=== PATIENT | female | born 1970 | race American Indian/Alaskan Native ===

== ENCOUNTER 2020-01-11 05:52 | Observation (INO) | payer BC ==
[2020-01-10 09:01] LABS: Basophils % (Auto) 0.5 % (0.0-1.8); Eosinophils % (Auto) 0.6 % (0.0-4.3); Hematocrit 35.3 % (30.3-42.9); Lymphocytes # (Auto) 1.5 K/mm3 (1.2-5.4); Lymphocytes % (Auto) 28.6 % (13.4-35.0); Mean Corpuscular HGB Conc 34 % (30-34); Mean Corpuscular Volume 83 fl (79-97); Monocytes # (Auto) 0.4 K/mm3 (0.0-0.8); Monocytes % (Auto) 7.8 % (0.0-7.3); Platelet Count 278 K/mm3 (140-440); Red Blood Count 4.25 M/mm3 (3.65-5.03)
--- NOTE | 2020-01-10 09:29 | Anesthesia Consultation ---
Anesthesia Consult and Med Hx Date of service: 01/11/20 - Airway Anesthetic Teeth Evaluation: Good ROM Head & Neck: Adequate Mental/Hyoid Distance: Adequate Mallampati Class: Class II Intubation Access Assessment: Probably Good - Pulmonary Exam CTA: Yes - Cardiac Exam Cardiac Exam: RRR - Pre-Operative Health Status ASA Pre-Surgery Classification: ASA2 Proposed Anesthetic Plan: General Nerve Block: TAP - Pulmonary Hx Smoking: No Hx Respiratory Symptoms: No Hx Sleep Apnea: No - Cardiovascular System Hx Hypertension: Yes Hx Heart Attack/AMI: No Hx Percutaneous Transluminal Coronary Angioplasty (PTCA): No Hx Cardia Arrhythmia: No - Central Nervous System CVA: No - Gastrointestinal Hx Gastroesophageal Reflux Disease: No - Endocrine Hx Renal Disease: No Hx Liver Disease: No Hx Insulin Dependent Diabetes: No Hx Non-Insulin Dependent Diabetes: No Hx Thyroid Disease: No - Hematic Hx Anemia: Yes (no hx blood transfusion) - Other Systems Hx Obesity: No - Additional Comments Anesthesia Medical History Comments: No hx anesthetic complications.
--- NOTE | 2020-01-10 17:53 | History and Physical Report ---
History of Present Illness Date of examination: 01/06/20 Chief complaint: Uterine fibroids and menorrhagia unresponsive to medical therapy. She now desires definitive surgical therapy in the form of hysterectomy with ovarian conservation. History of present illness: Past History : 1 Term Births: 1 Living Children: 1 Para: 1 # 1 Delivery type: Comments: cerclage [employer]IO [employer]CH History Operations: CARDIO TECH Surgery cerclage Repair of umbilicus hernia(2013) mesh Abnormal PAP: negative Uterine Anomaly: positive fibroids Infection History HIV Risk Eval: no Hx of STD: None Active Medications (reviewed today): MIRENA (52 MG) 20 MCG/24HR INTRAUTERINE INTRAUTERINE DEVICE (LEVONORGESTREL) insert with next NORVASC TABLET (AMLODIPINE BESYLATE TABS) Current Allergies (reviewed today): No known allergies Past Medical History: Reviewed history from 06/05/2011 and no changes required: Hypertension Family History Summary: Reviewed history Last on 11/26/2019 and no changes required:01/10/2020 Other Family Member - Has No Family History of Spontaneous DVT-PE - Entered On: 04/09/2019 Mother - Has Family History Breast Cancer - dx'd 1999, alive - Entered On: 04/09/2019 Other Family Member - Has No Family History of Uterine Cancer - Entered On: 09/13/2015 Other Family Member - Has No Family History of Small Bowel Cancer - Entered On: 09/13/2015 Other Family Member - Has No Family History of Stomach Cancer - Entered On: 09/13/2015 Other Family Member - Has No Family History of Pancreatic Cancer - Entered On: 09/13/2015 Other Family Member - Has No Family History of Ovarvian Cancer - Entered On: 09/13/2015 Other Family Member - Has No Family History of Kidney/Urinary Tract Cancer - Entered On: 09/13/2015 Other Family Member - Has No Family History of DVT/PE on OCP - Entered On: 09/13/2015 Other Family Member - Has No Family History of Colon Cancer - Entered On: 09/13/2015 Other Family Member - Has No Family History of Brain Cancer - Entered On: 09/13/2015 Other Family Member - Has No Family History of Biliary Tract Cancer - Entered On: 09/13/2015 Father - Has Family History of Prostate Cancer - Entered On: 09/13/2015 General Comments - FH: Family History Breast Cancer mother Menopause No Family History of Colon Cancer No Family History of Ovarvian Cancer No Family History of DVT/PE on OCP Social History: Reviewed history from 11/08/2016 and no changes required: Patient is Smoking History: Patient has never smoked. Risk Factors: Smoked Tobacco Use: Never smoker Smokeless Tobacco Use: Never HIV high-risk behavior: no Alcohol use: no Exercise: yes Seatbelt use: 100 % PAP Smear History: Date of Last PAP Smear: 04/09/2019 Previous Tobacco Use: Signed On - 11/26/2019 Smoked Tobacco Use: Never smoker Smokeless Tobacco Use: Never Drug use: no HIV high-risk behavior: no Previous Alcohol Use: Signed On - 11/26/2019 Alcohol use: no Exercise: yes Times per week: 3 Type of Exercise: gym Seatbelt use: 100 % Mammogram History: Date of Last Mammogram: 02/26/2019 PAP Smear History: Date of Last PAP Smear: 04/09/2019 Physical Exam Appearance: well developed, well nourished, no acute distress Other Exams Lungs: no rales, rhonchi, or wheezes Heart: S1, S2, no murmur, rub, or gallop Genitourinary Exam Uterus: see previous exam, deferred to EUA Impression & Recommendations: Problem # 1: Excessive and frequent menstruation with regular cycle (ICD-626.2) (RAK70-Z08.0) Diagnosis explained to patient . Discussed with patient various medical, surgical and radiological therapies common for treatment including, but not limited to, myomectomy, hysterectomy and uterine artery embolization. Discussed risks and benefits of laparotomy, laparoscopy, vaginal and robotic assisted approaches for hysterectomies. Patient desires definitive treatment in the form of robot assisted laparoscopic total hysterectomy. The risks and alternatives for this surgery were reviewed with the patient. She was informed of the risks of the surgery including, but not limited to, pain, infection, bleeding possibly heavy enough to require a blood transfusion with associated risks of infections (hepatitis and HIV) and transfusion reactions, possible damage to bowel, bladder or ureter(s). Patient understands that this surgery with make her sterile. Indications to abort a robotic/laparoscopic procedure and perform an open procedure were explained. She desires ovarian conservation. She was informed she may require surgery later to have her ovaries removed for a benign or malignant condition. Patient understands if her ovaries are removed she will become menopausal. Patient advised the small risks of spreading of malignancy if morcellation is required during the surgery patient understands and approves performing if necessary. Questions answered. Consent reviewed and signed The patient was instructed/informed the following: The normal length of hospital stay for this procedure. Nothing to eat or drink after midnight the evening prior to surgery. Clear liquids the day before surgery. Pre-op instruction sheets given. Wound care instructions given. Problem # 2: Leiomyoma, uterus, submucosal (ICD-218.0) ([id number]) Medications and Allergies Allergies Allergy/AdvReac Type Severity Reaction Status Date / Time rafat flavor Allergy Mild Rash on Verified 01/06/20 17:05 Lips Home Medications Medication Instructions Recorded Confirmed Last Taken Type Multivitamin [Multi Vitamin Daily] 1 tab PO DAILY 12/14/13 01/06/20 12/16/13 06:30 History amLODIPine 10 mg PO DAILY 12/14/13 01/06/20 12/17/13 06:15 History Active Meds: Active Medications Amlodipine Besylate (Amlodipine) 10 mg PO DAILY JOSE Celecoxib (Celebrex) 200 mg PO PREOP NR Stop: 01/11/20 23:59 Fentanyl (Sublimaze) 100 mcg IV ONCE PRN PRN Reason: sedation for nerve block Stop: 01/11/20 23:59 Gabapentin (Gabapentin) 600 mg PO PREOP NR Stop: 01/11/20 23:59 Lactated Ringer's (Lactated Ringers) 1,000 mls @ 100 mls/hr IV DIRECT JOSE Stop: 01/11/20 23:59 Cefazolin Sodium (Ancef/Sterile Water 2 Gm/20 Ml) 2 gm in 20 mls @ 80 mls/hr IV PREOP NR; Protocol Magnesium Oxide (Mag-Ox) 400 mg PO PREOP JOSE Stop: 01/11/20 23:59 Midazolam HCl (Versed) 2 mg IV PREOP NR Stop: 01/11/20 23:59 Exam Vital Signs Temp Pulse Resp BP Pulse Ox 98.8 F 86 20 145/86 100 01/10/20 08:45 01/10/20 08:45 01/10/20 08:45 01/10/20 08:45 01/10/20 08:45 Results - Labs 01/10/20 08:50 Abnormal lab results 01/10/20 Range/Units 08:50 Howell % (Auto) 7.8 H (0.0-7.3) % Assessment and Plan - Patient Problems (1) Menorrhagia Status: Acute (2) Fibroid Status: Acute (3) Hypertension Status: Chronic Qualifiers: Hypertension type: essential hypertension Qualified Code(s): I10 - Essential (primary) hypertension
[2020-01-11] MEDS ORDERED: LACTATED RINGERS 1,000 ML IV SCH ×2 (06:00→12:55)
[2020-01-11] MEDS ORDERED: CELECOXIB 200 MG CAP PO NR (06:00)
[2020-01-11] MEDS ORDERED: GABAPENTIN 300 MG CAP PO NR (06:00)
[2020-01-11] MEDS ORDERED: ceFAZolin/Water 2 GM/20 ML 2 GM/20 ML SYRINGE IV NR (06:00)
[2020-01-11] MEDS ORDERED: MIDAZOLAM 2 MG/2 ML INJ IV NR (06:00)
[2020-01-11] MEDS ORDERED: MAGNESIUM OXIDE 400 MG TAB PO SCH (06:00)
[2020-01-11] MEDS ORDERED: fentaNYL 100 MCG/2 ML INJ IV PRN (06:00)
[2020-01-11] MEDS ORDERED: dexAMETHasone 4 MG/ML VIAL ONE (07:16)
[2020-01-11] MEDS ORDERED: BUPIVACAINE-EPINEPHRINE/PF 0.25%-1:200,000 (30 ML) VIAL INFILTRATI ONE (07:17)
[2020-01-11] MEDS ORDERED: NEOMY 40 MG/POLYMYXIN B 200,000 UNITS/ML (GU) AMPULE IR ONE ×2 (07:23→09:45)
[2020-01-11] MEDS ORDERED: CALCIUM CHLORIDE 1,000 MG/10 ML SYRINGE IV ONE ×2 (07:23→09:44)
[2020-01-11] MEDS ORDERED: THROMBIN (RECOMBINANT) 5,000 UNIT VIAL TP ONE ×2 (07:24→09:45)
[2020-01-11] MEDS ORDERED: HYDROmorphone 1 MG/1 ML INJ IV PRN (07:31)
--- NOTE | 2020-01-11 07:31 | Anesthesia Day of Surgery ---
Anesthesia Day of Surgery - Day of Surgery Patient Examined: Yes Patient H&P Reviewed: Yes Patient is NPO: Yes
[2020-01-11] MEDS ORDERED: propofoL 200 MG/20 ML VIAL IV ONE (07:33)
[2020-01-11] MEDS ORDERED: ONDANSETRON 4 MG/2 ML INJ ONE (07:33)
[2020-01-11] MEDS ORDERED: dexAMETHasone 20 MG/5 ML VIAL ONE (07:33)
[2020-01-11] MEDS ORDERED: LIDOCAINE MPF (2%) 20 MG/1 ML VIAL 5 ML ONE (07:33)
[2020-01-11] MEDS ORDERED: ROCURONIUM 50 MG/5 ML INJ IV ONE ×2 (07:33→10:34)
[2020-01-11] MEDS ORDERED: SODIUM CHLORIDE 0.9% 100 ML ONE (09:09)
[2020-01-11] MEDS ORDERED: VASOPRESSIN 20 UNIT/1 ML INJ ONE (09:10)
[2020-01-11] MEDS ORDERED: CITRIC ACID-SOD CITRATE 500 ML IV ONE (09:19)
[2020-01-11] MEDS ORDERED: CITRIC ACID-SOD CITRATE SOLN 500 ML IV SOLN IV ONE (09:44)
[2020-01-11] MEDS ORDERED: SODIUM CHLORIDE 0.9% IRRIG SOLN 2000 ML IR ONE (09:46)
[2020-01-11] MEDS ORDERED: VASOPRESSIN 20 UNIT/1 ML INJ IM ONE (09:46)
[2020-01-11] MEDS ORDERED: SODIUM CHLORIDE 0.9% 100 ML IVPB IV ONE (09:46)
[2020-01-11] MEDS ORDERED: amLODIPine 10 MG TAB PO SCH (10:00)
[2020-01-11] MEDS ORDERED: GLYCOPYRROLATE 0.4 MG/2 ML INJ ONE (11:27)
[2020-01-11] MEDS ORDERED: NEOSTIGMINE 10MG/10 ML INJ MDV ONE (11:27)
[2020-01-11] MEDS ORDERED: PHENYLEPHRINE/NS 1,000 MCG/10 ML SYRINGE (OR USE) IV ONE ×5 (11:31)
--- NOTE | 2020-01-11 12:13 | Post Operative Note ---
Pre-op diagnosis: Menorrhagia, fibroids Post-op diagnosis: same (SULEMA) Findings: 18weeks size uterus, pelvic/abdominal adhesions, grossly tubes and ovaries Procedure: RALTH, (B) salpingectomy, SULEMA Anesthesia: DONNAA Surgeon: ODESSA PIZANO Estimated blood loss: other (350mL; given 125mL ce;;saved RBC's) Pathology: list (uterus, tubes, (B) fallopian tubes) Specimen disposition: to lab Condition: stable Disposition: PACU
--- NOTE | 2020-01-11 12:23 | Operative Report ---
Operative Report Operative Report: Date: 01/11/2020 Preoperative diagnosis: 1. Menorrhagia 2. Uterine fibroid 3. Body mass index of 24 kg/m 4. Hypertension Postoperative diagnosis: 1. Menorrhagia 2. Uterine fibroid 3. Body mass index of 24 kg/m 4. Hypertension 5. Abdominal pelvic adhesions Procedure: 1. Robotic-assisted laparoscopic total hysterectomy with bilateral salpingectomy 2. Lysis of adhesion Surgeon: Jacquie Dunn MD Quality Rep: Jayden Lancaster Anesthesiologist: Dr. Katia Beyer Anesthesia: General endotracheal anesthesia EBL: Approximately 350 mL Findings: EUA: Uterus palpated to approximately 18 weeks. Uterus was sounded to 13 cm. Grossly normal tubes and ovaries. Approximately 9 cm posterior fundal fibroid. Omental adhesions to the anterior abdominal wall mesh. No bowel involvement noted. Patient received 125 mL's of Cell Saved packed red blood cells. Procedure: Patient was taken to the OR and placed in the supine position. General anesthesia was induced and an oral gastric tube was placed. Her neck and head were placed on foam support. Foam eye protection with goggles were secured in place. Then foam face protection was placed and secured. Foam shoulder pads were then positioned on her shoulders for Trendelenburg positioning. She was then placed in dorsolithotomy position. Exam under anesthesia as above. The abdomen and vagina were then prepped and draped in the usual sterile fashion. Timeout was performed. A Osorio catheter was inserted into the bladder with drainage of clear yellow urine. The operative speculum was introduced into the vagina and the anterior lip of the cervix was grasped with single-toothed tenaculum. The uterus was sounded to 13 cm. The cervix was progressively dilated to allow the [] V care uterine manipulator. The bulb of the manipulator was inflated and the speculum and tenaculum were removed. The cup of the manipulator was placed around the cervix and the blue occluder of the manipulator was properly positioned in the vagina and secured. A laparotomy sponge that was saturated with a solution of polymyxin and saline was placed in the vagina to ensure pneumoperitoneum. Sterile gloves were placed and attention was turned to the abdomen. A 10 mm midline vertical supraumbilical incision was made approximately 10 cm superior to the elevated fundus of the uterus. A 10-12 mm trocar with the laparoscope and camera attached was introduced through this incision under direct visualization. The abdomen was insufflated. No obvious bowel, bladder, ureteral, or major vascular injury was noted. The patient was then placed in steep Trendelenburg position and the following trochars were placed under direct visualization: 8 mm robotic trochars were placed through incisions made in the bilateral midclavicular lower abdominal region approximately 10 cm lateral to the midline incision, and a 5 mm trocar was placed through an incision made in the right lower lateral pelvis. The 10 mm laparoscope was then replaced by a 5 mm laparoscope that was placed through the 5 millimeter lateral trocar. Once the trochars were in the appropriate positions, using the laparoscopic EndoShears and 30 W of energy the adhesions were released from the anterior abdominal wall mesh. No obvious bowel injury was noted. The released omentum was hemostatic. The 12 mm trocar was then removed and the Oli Jeffries fascial closure device was placed through the incision and a 0 Vicryl was placed through the fascia. Once the suture was secured the 12 mm trocar was reintroduced. The da Yun robot system was engaged. The EndoShears and bipolar device was placed through the 8 mm trochars and positioned then attention was turned to the console. At this point decision was made to proceed with myomectomy to improve visualization of the operative field. Using 60 mL of Pitressin (20 units in 100 mL's of normal saline), the fundal posterior fibroid was infused with Pitressin and an incision was made using the robotic EndoShears and a myomectomy was performed. Then using the V-Loc 180 the fibroid was secured to the anterior abdominal wall to ensure there was a lost during the rest of the procedure. The uterus was elevated and bilateral salpingectomy was performed. Each tube was removed through the 5 mm trocar and sent to pathology in separate containers. Then the utero-ovarian ligaments were clamped. cauterized and incised bilaterally using 30 W of energy. Then the round ligaments were clamped, cauterized and incised bilaterally. The anterior leaf of the broad ligament was elevated and with careful blunt and sharp dissection the bladder flap was created and dissected away from the lower uterine segment and cervix. The posterior leaf of the broad ligament was dissected away from the uterine vessels. The cup of the uterine manipulator was palpated both anteriorly and posteriorly. The bladder was further dissected away from the lower uterine segment. The uterine vessels were then clamped and cauterized bilaterally. Blanching of the uterus was then noted. Attention was again turned to the anterior lower uterine segment and the bladder was confirmed to be away from the operative field. Then attention was turned again to the posterior where the cup of the manipulator was palpated and a colpotomy was performed down to the cup. The incision was extended in the lateral position to the uterine vessels that were again clamped and cauterized and incised. Continuing along the cup of the manipulator in a circumferential manner the colpotomy was completed. The uterus,cervix and fibroid were then removed through the vaginal incision. The pelvis was irrigated with warm normal saline. A moist laparotomy sponge was placed in the vagina to maintain pneumoperitoneum. The vagina cuff was reapproximated using V LOC 180 suture. Then a J stitch was performed to secure the suture. Again the pelvis was copiously irrigated with polymixin in warm normal saline. The laparotomy sponge was removed from the vagina. No obvious evidence of bowel, bladder, ureteral, or major vascular injury was noted. Once hemostasis was noted, platelet rich plasma was applied to the operative field to ensure hemostasis. Platelet poor plasma was applied to decrease formation of adhesions. Then the instruments were removed, the robot was disengaged. The 12 mm trocar was removed and the fascia was ligated with the 0 Vicryl suture that was placed at the beginning of the procedure. An additional stitch of 0 Vicryl was placed through a noted defect in the fascia at the midline incision. The patient was taken out of Trendelenburg position, the abdomen was desufflated, the remaining trochars were removed. Incisions were reapproximated using 4-0 Monocryl in a subcuticular manner. Surgiseal was placed over the other incisions. The vagina was then inspected, the cuff was palpated to be intact and no bleeding was noted and clear yellow urine was draining into the Osorio bag from the bladder at the end of the procedure. Counts were correct 3. Patient was taken to recovery room in stable condition.
[2020-01-11] MEDS ORDERED: MORPHINE 2 MG/1 ML INJ IV PRN (12:55)
[2020-01-11] MEDS ORDERED: MORPHINE 4 MG/1 ML INJ IV PRN (12:55)
[2020-01-11] MEDS ORDERED: METOCLOPRAMIDE 10 MG/2 ML INJ IV PRN (12:55)
[2020-01-11] MEDS ORDERED: ONDANSETRON 4 MG ODT TAB PO PRN (12:55)
[2020-01-11] MEDS ORDERED: NALOXONE 0.4 MG/1 ML INJ IV PRN (12:55)
[2020-01-11] MEDS ORDERED: ONDANSETRON 4 MG/2 ML INJ IV PRN (12:55)
[2020-01-11] MEDS ORDERED: HYDROcodone/ACETAMINOPHEN 5-325 MG TAB PO PRN (12:55)
--- NOTE | 2020-01-11 14:10 | Post Anesthesia Evaluation ---
- Post Anesthesia Evaluation Patient Participated: Yes Airway Patent: Yes Stable Respiratory Function: Yes Nausea/Vomiting: No Temp > 96.8F: Yes Pain Manageable: Yes Adequeate Hydration: Yes Anesthesia Complications: No
[2020-01-11] MEDS: ACETAMINOPHEN 325 MG TAB PO SCH ×2 (14:55→21:50)
[2020-01-11] MEDS: ceFAZolin/NS 1 GM/50 ML 1 GM/50 ML BAG IV SCH ×2 (14:55→21:51)
[2020-01-11] MEDS: KETOROLAC 30 MG/1 ML INJ IV SCH ×2 (17:28→22:49)
--- NOTE | 2020-01-11 19:35 | Progress Note ---
Assessment and Plan - Patient Problems (1) History of robot-assisted laparoscopic hysterectomy Current Visit: Yes Status: Acute Plan to address problem: Operative findings and procedures explained to her and her , plan of care discussed. Questions encouraged and answered. Continue post hysterectomy pathway. She voiced understanding and agrees with plan of care (2) Menorrhagia Current Visit: No Status: Resolved (3) Fibroid Current Visit: No Status: Resolved (4) Hypertension Current Visit: No Status: Chronic Qualifiers: Hypertension type: essential hypertension Qualified Code(s): I10 - Essential (primary) hypertension Subjective - Subjective Date of service: 01/11/20 Principal diagnosis: DOS s/p RALTH, (B) salpingectomy, SULEMA Interval history: Past History : 1 Term Births: 1 Living Children: 1 Para: 1 # 1 Delivery type: Comments: cerclage [employer] History Operations: [employer] Surgery cerclage Repair of umbilicus hernia(2013) mesh Abnormal PAP: negative Uterine Anomaly: positive fibroids Infection History HIV Risk Eval: no Hx of STD: None Active Medications (reviewed today): MIRENA (52 MG) 20 MCG/24HR INTRAUTERINE INTRAUTERINE DEVICE (LEVONORGESTREL) insert with next NORVASC TABLET (AMLODIPINE BESYLATE TABS) Current Allergies (reviewed today): No known allergies Past Medical History: Reviewed history from 06/05/2011 and no changes required: Hypertension Family History Summary: Reviewed history Last on 11/26/2019 and no changes required:01/10/2020 Other Family Member - Has No Family History of Spontaneous DVT-PE - Entered On: 04/09/2019 Mother - Has Family History Breast Cancer - dx'd 1999, alive - Entered On: 04/09/2019 Other Family Member - Has No Family History of Uterine Cancer - Entered On: 09/13/2015 Other Family Member - Has No Family History of Small Bowel Cancer - Entered On: 09/13/2015 Other Family Member - Has No Family History of Stomach Cancer - Entered On: 09/13/2015 Other Family Member - Has No Family History of Pancreatic Cancer - Entered On: 09/13/2015 Other Family Member - Has No Family History of Ovarvian Cancer - Entered On: 09/13/2015 Other Family Member - Has No Family History of Kidney/Urinary Tract Cancer - Entered On: 09/13/2015 Other Family Member - Has No Family History of DVT/PE on OCP - Entered On: 09/13/2015 Other Family Member - Has No Family History of Colon Cancer - Entered On: 09/13/2015 Other Family Member - Has No Family History of Brain Cancer - Entered On: 09/13/2015 Other Family Member - Has No Family History of Biliary Tract Cancer - Entered On: 09/13/2015 Father - Has Family History of Prostate Cancer - Entered On: 09/13/2015 General Comments - FH: Family History Breast Cancer mother Menopause No Family History of Colon Cancer No Family History of Ovarvian Cancer No Family History of DVT/PE on OCP Social History: Reviewed history from 11/08/2016 and no changes required: Patient is Smoking History: Patient has never smoked. Risk Factors: Smoked Tobacco Use: Never smoker Smokeless Tobacco Use: Never HIV high-risk behavior: no Alcohol use: no Exercise: yes Seatbelt use: 100 % PAP Smear History: Date of Last PAP Smear: 04/09/2019 Previous Tobacco Use: Signed On - 11/26/2019 Smoked Tobacco Use: Never smoker Smokeless Tobacco Use: Never Drug use: no HIV high-risk behavior: no Previous Alcohol Use: Signed On - 11/26/2019 Alcohol use: no Exercise: yes Times per week: 3 Type of Exercise: gym Seatbelt use: 100 % Mammogram History: Date of Last Mammogram: 02/26/2019 PAP Smear History: Date of Last PAP Smear: 04/09/2019 Physical Exam Appearance: well developed, well nourished, no acute distress Other Exams Lungs: no rales, rhonchi, or wheezes Heart: S1, S2, no murmur, rub, or gallop Genitourinary Exam Uterus: see previous exam, deferred to EUA Impression & Recommendations: Problem # 1: Excessive and frequent menstruation with regular cycle (ICD-626.2) (ORE29-P75.0) Diagnosis explained to patient . Discussed with patient various medical, surgical and radiological therapies common for treatment including, but not limited to, myomectomy, hysterectomy and uterine artery embolization. Discussed risks and benefits of laparotomy, laparoscopy, vaginal and robotic assisted approaches for hysterectomies. Patient desires definitive treatment in the form of robot assisted laparoscopic total hysterectomy. The risks and alternatives for this surgery were reviewed with the patient. She was informed of the risks of the surgery including, but not limited to, pain, infection, bleeding possibly heavy enough to require a blood transfusion with associated risks of infections (hepatitis and HIV) and transfusion reactions, possible damage to bowel, bladder or ureter(s). Patient understands that this surgery w ith make her sterile. Indications to abort a robotic/laparoscopic procedure and perform an open procedure were explained. She desires ovarian conservation. She was informed she may require surgery later to have her ovaries removed for a benign or malignant condition. Patient understands if her ovaries are removed she will become menopausal. Patient advised the small risks of spreading of malignancy if morcellation is required during the surgery patient understands and approves performing if necessary. Questions answered. Consent reviewed and signed The patient was instructed/informed the following: The normal length of hospital stay for this procedure. Nothing to eat or drink after midnight the evening prior to surgery. Clear liquids the day before surgery. Pre-op instruction sheets given. Wound care instructions given. Problem # 2: Leiomyoma, uterus, submucosal (ICD-218.0) (GVS80-F90.0) Patient reports: voiding normally, pain well controlled Objective - Vital Signs Latest vital signs: Vital Signs Temp Pulse Resp BP BP Pulse Ox 01/11/20 18:25 98 01/11/20 16:20 97.5 F L 77 20 107/74 98 01/11/20 12:24 98.4 F 68 18 105/70 100 01/11/20 12:09 70 19 102/68 100 01/11/20 12:04 78 20 105/70 100 01/11/20 11:59 77 20 105/69 100 01/11/20 11:54 98.1 F 77 22 116/72 100 01/11/20 07:33 97 H 18 137/81 100 01/11/20 07:28 99 H 16 126/81 100 01/11/20 07:23 85 12 132/87 100 01/11/20 07:22 16 01/11/20 07:19 85 14 140/84 100 01/11/20 07:15 16 01/11/20 06:35 98.7 F 86 20 132/84 99 01/11/20 06:30 98.7 F 86 20 132/84 99 Intake and Output 01/11/20 01/11/20 01/11/20 06:59 14:59 22:59 Intake Total 200 600 Output Total 200 350 Balance 0 250 Intake: IV 200 Oral 600 Output: Urine 200 350 Indwelling Catheter 350 Other: Total, Intake Amount 360 Total, Output Amount 200 Voiding Method Toilet Indwelling Catheter Indwelling Catheter - Exam Breasts: Present: normal Cardiovascular: Present: Regular rate Lungs: Present: Clear to auscultation, Normal air movement Abdomen: Present: normal appearance, normal bowel sounds. Absent: distention Extremities: Present: other (SCDs on and functioning properly). Absent: tenderness Incision: Present: normal, dry, intact
[2020-01-12] MEDS: KETOROLAC 30 MG/1 ML INJ IV SCH ×2 (00:40→05:14)
[2020-01-12] MEDS: ACETAMINOPHEN 325 MG TAB PO SCH ×2 (00:41→05:58)
[2020-01-12 08:01] LABS: Hematocrit 25.9 % (30.3-42.9); Hemoglobin 8.6 gm/dl (10.1-14.3)
--- NOTE | 2020-01-12 08:08 | Discharge Summary ---
Providers - Providers Date of Admission: 01/11/20 11:59 Date of discharge: 01/12/20 Attending physician: ODESSA PIZANO Primary care physician: NICO MARIA Hospitalization Condition: Good Procedures: RALTH,(B) salpingectomy, SULEMA Hospital course: Normal Disposition: DC-01 TO HOME OR SELFCARE - Discharge Diagnoses (1) History of robot-assisted laparoscopic hysterectomy Status: Acute (2) Menorrhagia Status: Resolved (3) Fibroid Status: Resolved (4) Hypertension Status: Chronic Qualifiers: Hypertension type: essential hypertension Qualified Code(s): I10 - Essential (primary) hypertension (5) Anemia Status: Acute Qualifiers: Other causes of anemia: acute posthemorrhagic Comment: see event note, s/w RN and patient by phone, h/h and vs noted, patient denies lightheadedness or dizziness, states +flatus and urinating w/o difficulty. Víctor allow home on FeSO4 and Colace( sent thru office EMR to [facility]). Precautions given Core Measure Documentation - Palliative Care Palliative Care/ Comfort Measures: Not Applicable - Core Measures Any of the following diagnoses?: none Exam - Constitutional Vitals: Temp Pulse Resp BP Pulse Ox 98.6 F 66 18 110/68 96 01/12/20 04:00 01/12/20 04:00 01/12/20 07:40 01/12/20 04:00 01/12/20 00:33 General appearance: Present: no acute distress (Staniding in room at bedside, ambulating without difficulty. Desires d/c home) - Neck Neck: Present: supple - Respiratory Respiratory effort: normal Respiratory: bilateral: CTA - Cardiovascular Rhythm: regular - Extremities Extremities: no ischemia, No edema (NT) - Abdominal General gastrointestinal: Present: soft, non-tender, non-distended, normal bowel sounds - Integumentary Integumentary: Present: clear, warm, dry (incisions c/d/i) - Psychiatric Psychiatric: appropriate mood/affect, intact judgment & insight, memory intact, cooperative - Neurologic Neurologic: CNII-XII intact Plan Activity: other (No sex, no driving, ambulate ~1mile on your property at day. Void frequently. Use your incentive spirometer every hour while awake. ) Weight Bearing Status: Full Weight Bearing Diet: low salt (Eat small meals frequently, drink ~64oz of water a day. Avoid spicy, high sodium and fatty foods. ) Wound: open to air, keep clean and dry Special Instructions: no heavy lifting (Greater 25lbs) Care Plan Goals: CALL OFFICE TO SCHEDULE POST OPERATIVE APPOINTMENT Call your doctor immediately for: * Fever > 100.5 * Heavy vaginal bleeding ( >1 pad per hour) * Severe persistent headache * Shortness of breath * Reddened, hot, painful area to leg or breast * Drainage or odor from incision. * Keep incision clean and dry at all times and follow doctor's instructions regarding bathing/showering Follow up with: NICO MARIA JR, MD [Primary Care Provider] - 7 Days Forms: [facility] Discharge Summary Prescriptions: RX: Ibuprofen [Motrin 800 MG tab] 800 mg PO TID PRN #30 tablet PRN Reason: Pain RX: traMADoL [Ultram 50 MG tab] 50 mg PO Q6HR PRN #14 tablet PRN Reason: Pain
[2020-01-12] MEDS ORDERED: PANTOPRAZOLE 40 MG INJ IV SCH (10:00)
--- NOTE | 2020-01-12 10:40 | Event Note ---
Date: 01/12/20 H/H and VS noted, s/w patient by phone she is asymptomatic. Explained decrease in h/h mostly d/t blood during myomectomy at [facility], no obvious evidence of active bleeding, however recheck h/h in 6hr and allow home if stable. She voiced understanding and agrees with plan of care. Elida RN states patient is stable woth no complaints, she's also aware of POC.
[2020-01-12] MEDS ORDERED: oxyCODONE /ACETAMINOPHEN 5-325MG TAB PO PRN (11:59)
[2020-01-12 12:29] VITALS: BP 110/73
[2020-01-12 14:21] LABS: Hemoglobin 8.3 gm/dl (10.1-14.3)
== END 2020-01-12 15:09 | disposition home or self-care (01) ==
LOC: OR 05:52 → OB 11:59
PROVIDERS: ADMIT Obstetrics & Gynecology; ATTEND Obstetrics & Gynecology
DX: D25.9 Leiomyoma of uterus, unspecified (principal); Z20.828 Contact with and (suspected) exposure to other viral communicable diseases; N92.0 Excessive and frequent menstruation with regular cycle; D62 Acute posthemorrhagic anemia; I10 Essential (primary) hypertension; Z79.899 Other long term (current) drug therapy
CPT/HCPCS: 36415; 36430; 58573; 64450; 81025; 85014; 85018; 85025; 86850; 86900; 86901; 88300; 88302; 88307; 96361; 96365; 96366; 96372; 96375; 96376; A4217; G0378; J0690; J1100; J1170; J1885; J2250; J2370; J2405; J2704; J2710; J3010; J7120; P9016; S2900; U0003; 88309